=== PATIENT | female | born 1995 | race Two or more races ===

== ENCOUNTER 2016-07-24 12:01 | Emergency (ER) | payer OTHER ==
[~2016-07-24] VITALS: Ht 154.9 cm; Wt 61.2 kg
[2016-07-24 12:12] VITALS: BP 107/71
== END 2016-07-24 13:04 | disposition home or self-care (01) ==
LOC: ER 12:03
DX: O98.813 Other maternal infectious and parasitic diseases complicating pregnancy, third trimester (principal); B86 Scabies; Z3A.28 28 weeks gestation of pregnancy
CPT/HCPCS: A4606; Z7610